=== PATIENT | female | born 1985 | race Caucasian/White ===

== ENCOUNTER → 2022-03-31 15:24 | Outpatient (BNVA) | payer BC, MEDICAID, SELFPAY | PROVIDERS: Family Provider Nurse Practitioner; Visit Provider Nurse Practitioner | DX: M79.642 Pain in left hand (principal) | CPT/HCPCS: 73130 ==

== ENCOUNTER → 2022-06-27 15:24 | Outpatient (BNVA) | payer BC, MEDICAID, SELFPAY | PROVIDERS: Family Provider Nurse Practitioner; Visit Provider Nurse Practitioner | DX: M89.672 Osteopathy after poliomyelitis, left ankle and foot (principal); B91 Sequelae of poliomyelitis; M25.572 Pain in left ankle and joints of left foot | CPT/HCPCS: 73610; 73630 ==

== ENCOUNTER 2022-09-05 09:58 | Outpatient (CLI) | payer BC, MEDICAID, SELFPAY ==
--- NOTE | 2022-09-05 10:15 | XR_ITS ---
WS: [id number] Exam: XR lumbar spine f/e only [id number] Date/Time of Exam: 09/05/2022 10:32 AM Reason For Exam: LOW BACK PAIN/CHRONIC PAIN No acute fracture or dislocation. No flexion or extension instability is seen. Mild spondylosis. Disc spaces are relatively well maintained. XR/XR lumbar spine f/e only 54000 IMPRESSION: 1. No flexion or extension instability.
== END 2022-09-05 09:59 | disposition home or self-care (01) ==
LOC: RAD 10:04
PROVIDERS: PCP Nurse Practitioner; Visit Provider Nurse Practitioner
DX: M54.50 Low back pain, unspecified (principal); G89.29 Other chronic pain
CPT/HCPCS: 72120